=== PATIENT | female | born 1955 | race Caucasian/White ===

== ENCOUNTER → 2016-08-29 | Outpatient (CLI) | payer BC ==
--- NOTE | 2016-08-29 17:22 | CT ---
EXAMINATION TYPE: CT chest w con DATE OF EXAM: 08/29/2016 5:05 PM COMPARISON: 06/02/2016 HISTORY: Follow-up abnormal scan. CT DLP: 552.00 mGycm Automated exposure control for dose reduction was used. CONTRAST: CT scan of the chest is performed with IV Contrast, patient injected with 100 mL of Omnipaque 300. FINDINGS: There is mild linear reticular density in the lower lobes bilaterally. This is consistent with scarri ng and subsegmental atelectasis. There is a 7 mm irregular shaped nodular low density in the anterior right middle lobe. There is no pleural effusion. There are no hilar masses. There is no mediastinal adenopathy. There is no evidence of aortic aneurysm or dissection. There is no pericardial effusion. I see no filling defects in the pulmonary arteries. IMPRESSION: Stable triangular-shaped nodule in the right middle lobe consistent with scarring compar ed to last exam. Mild subsegmental atelectasis and scarring in the lower lobes bilaterally appears st able. No evidence of pulmonary embolism.
== END | disposition home or self-care (01) ==
LOC: RADCTMAIN 16:29
PROVIDERS: ATTEND Internal Medicine Critical Care Medicine
DX: R91.1 Solitary pulmonary nodule (principal); J98.11 Atelectasis; J98.4 Other disorders of lung
CPT/HCPCS: 71260; Q9967

== ENCOUNTER → 2017-04-14 | Outpatient (CLI) | payer BC ==
--- NOTE | 2017-04-15 09:44 | CT ---
EXAMINATION TYPE: CT chest w con DATE OF EXAM: 04/14/2017 COMPARISON: 08/29/2016, 03/21/2016 HISTORY: No complaints at time of scan. Follow up nodule CT DLP: 238.4 mGycm, Automated exposure control for dose reduction was used. CONTRAST: Performed injected with 100 mL of Omnipaque 300. TECHNIQUE: Axial images were obtained at 5 mm thick sections. Reconstructed images are reviewed on [employer] computer in the coronal plane. FINDINGS: Portion of the thyroid visualized is normal. There is some streak opacities within the right middle lobe and within the lingula could represent so me atelectatic changes at the lung bases. Stable appearing 0.6 cm nodules in the anterior right middl e lobe. Series 4 image 38. No enlarged mediastinal or hilar adenopathy is evident. The ascending aorta diameter at the level o f the main pulmonary artery is 3.1 cm. The main pulmonary artery diameter at the bifurcation is 2.[address] sections are obtained through the upper abdomen. Abdomen is essentially unremarkable. IMPRESSIONS: 1. Mild linear opacities at the lung bases likely on the basis of atelectasis. 2. Stable small nodule right middle lobe. Continued monitoring is recommended. This should be confirm ed as stable over the course of 2 years.
== END | disposition home or self-care (01) ==
LOC: RADCTMAIN 19:13
PROVIDERS: ATTEND Internal Medicine Critical Care Medicine
DX: R91.1 Solitary pulmonary nodule (principal); R91.8 Other nonspecific abnormal finding of lung field; Z88.2 Allergy status to sulfonamides; Z88.6 Allergy status to analgesic agent
CPT/HCPCS: 71260; Q9967

== ENCOUNTER → 2017-05-27 | Outpatient (CLI) | payer BC ==
--- NOTE | 2017-05-28 14:01 | MM ---
Reason for exam: screening (asymptomatic). Last mammogram was performed 1 year and 11 months ago. History: Patient is postmenopausal. Physical Findings: A clinical breast exam by your physician is recommended on an annual basis and results should be correlated with mammographic findings. MG 3D Screening Mammo W/Cad Bilateral CC and MLO view(s) were taken. Prior study comparison: July 05, 2015, bilateral MG screening mammo w CAD. June 07, 2014, bilateral MG screening mammo w CAD. There are scattered fibroglandular densities. No suspicious abnormality. No significant changes when compared with prior studies. ASSESSMENT: Negative, BI-RAD 1 RECOMMENDATION: Routine screening mammogram of both breasts in 1 year.
== END | disposition home or self-care (01) ==
LOC: RADMAMWWP 12:40
PROVIDERS: ATTEND Family Medicine
DX: Z12.31 Encounter for screening mammogram for malignant neoplasm of breast (principal)
CPT/HCPCS: 77063; G0202

== ENCOUNTER → 2017-06-25 | Outpatient (CLI) | payer BC ==
--- NOTE | 2017-06-25 14:26 | XR ---
EXAMINATION TYPE: XR chest 2V DATE OF EXAM: 06/25/2017 COMPARISON: 03/11/2016 TECHNIQUE: PA and lateral views submitted. HISTORY: Preop FINDINGS: The lungs are clear and there is no pneumothorax, pleural effusion, or focal pneumonia. Hypertrophi c change of the AC joints. No overt failure. Linear changes involving the lungs are suggestive of sca r or atelectasis IMPRESSION: 1. No acute process.
== END | disposition home or self-care (01) ==
LOC: RADXRMAIN 13:56
PROVIDERS: ATTEND Physician Assistant
DX: Z01.818 Encounter for other preprocedural examination (principal)
CPT/HCPCS: 71046

== ENCOUNTER 2017-06-29 05:45 | Observation (INO) | payer BC ==
--- NOTE | 2017-06-25 16:54 | HP ---
HISTORY AND PHYSICAL DATE OF ADMISSION: 06/29/2017 HISTORY: This is a 62-year-old, 2, para 2 woman with symptomatic pelvic prolapse that started approximately 6 weeks ago. She describes a uncomfortable bulging from the vaginal area and needs to change positions in order to empty her bladder completely. Symptoms are accentuated by standing and exercise. She denies postmenopausal bleeding, incontinence, or blood in the stool or urine. On examination, she is found to have a grade 3 cystocele, grade 2 uterine prolapse and a small rectocele and she is therefore scheduled to undergo total vaginal hysterectomy with anterior colporrhaphy on 06/29/2016. ALLERGIES: BACLOFEN, SULFA, ULTRAM. MEDICATIONS: Amrix 30 mg daily, diltiazem 120 mg daily, fluoxetine 20 mg a day. Meloxicam 7.5 mg daily, [place] 5/325 mg p.r.n., omeprazole 20 mg daily, simvastatin 40 mg daily, and Xarelto 20 mg daily. PAST MEDICAL HISTORY: TIA in 2003, atrial fibrillation, hypothyroidism, hypercholesterolemia, chronic low back pain and anxiety. PAST SURGICAL HISTORY: Appendectomy in 8, tonsillectomy in 1959. 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 She has been menopausal since 2007. No history of abnormal Pap smears or other pelvic pathology. SOCIAL HISTORY: She is . She is a former smoker. Negative for alcohol or drug use. FAMILY HISTORY: Significant for heart disease in her father. REVIEW OF SYSTEMS: Negative except for that described above. PHYSICAL EXAM: Blood pressure 120/66, heart rate 94, weight 158 pounds, height 5 feet 7. In general, this is a pleasant female in no apparent distress. HEENT exam is unremarkable with no palpable lymphadenopathy or thyromegaly. The lungs are clear to auscultation bilaterally and the heart is of regular rate and rhythm. The abdomen is soft and nontender with no rebound, no guarding and no flank pain. On pelvic examination, she has normal atrophic female external genitalia without lesions or irritation. On Valsalva, she does have a third-degree cystocele, second-degree cervical uterine prolapse, and first degree rectocele. On bimanual examination, the uterus is small, freely mobile and in the midline with no palpable adnexal masses. This is confirmed on rectovaginal examination. ASSESSMENT: A 62-year-old 2, para 2 with symptomatic third-degree cystocele and second- degree cervical uterine prolapse. She is scheduled to undergo a total vaginal hysterectomy with anterior colporrhaphy. Alternatives to this procedure have been reviewed and declined by the patient. The risks include, but are not limited to bleeding, transfusion, laparotomy, infection, damage to bowel, bladder, ureters, or other pelvic structures. There is a risk of recurrent prolapse. She has a risk for anesthesia complications, DVT, PE and/or . She has undergone cardiac clearance and will hold her Xarelto prior to the procedure. She is scheduled to undergo the above-named procedure on 06/29/2017. MMODL / IJN: [id number] /
[~2017-06-29 05:45] MED LIST: DEXAMETHASONE SOD PHOSPHATE 10 MG/ML 1 ML VIAL IV ONE; HEPARIN SODIUM,PORCINE 5,000 UNIT/ML 1 ML VIAL SQ ONE; LIDOCAINE 1% 20 ML VIAL (10MG/ML) FOR IV START INTRADERMA PRN; ONDANSETRON 4 MG/2 ML VIAL IVP ONE; SCOPOLAMINE 1.5MG/72HR PATCH TRANSDERM ONE; ceFAZolin IN SWFI 2 GM/20 ML SYRINGE IVP ONE; cefOXitin IN SWFI 2 GM/10 ML SYRINGE IVP ONE
[2017-06-29] MEDS: LACTATED RINGERS 1,000 ML IV SCH (06:45)
[2017-06-29] MEDS ORDERED: MIDAZOLAM 2 MG/2 ML VIAL ONE (07:26)
[2017-06-29] MEDS ORDERED: LIDOCAINE 1% INJ 10MG/ML (20 ML MDV) ONE (07:26)
[2017-06-29] MEDS ORDERED: PROPOFOL 10 MG/ML 20 ML VIAL IV ONE (07:26)
[2017-06-29] MEDS ORDERED: NALOXONE 0.4 MG/ML 1 ML VIAL IV PRN (07:49)
[2017-06-29] MEDS ORDERED: MORPHINE SULFATE 5 MG/ML SYRINGE IVP PRN (07:49)
[2017-06-29] MEDS ORDERED: VASOPRESSIN 20 UNIT/ML 1 ML VIAL SQ ONE (07:59)
[2017-06-29] MEDS ORDERED: VASOPRESSIN 20 UNIT/ML 1 ML VIAL IV ONE (07:59)
[2017-06-29] MEDS ORDERED: BACITRACIN 500 UNIT/GM OINT 28.4 GM TUBE TOPICAL ONE (08:16)
[2017-06-29] MEDS ORDERED: LACTATED RINGERS 1,000 ML IV ONE (08:23)
--- NOTE | 2017-06-29 08:38 | P.OP ---
Date of Procedure: 06/29/17 Preoperative Diagnosis: Third-degree cystocele, second-degree cervical uterine prolapse Postoperative Diagnosis: Same Procedure(s) Performed: Total vaginal hysterectomy and anterior colporrhaphy Anesthesia: spinal Surgeon: Ashlie Gonzáles [employer]scape [employer] Internship #1: Imelda Klein Estimated Blood Loss (ml): 25 IV fluids (ml): 800 Urine output (ml): 100 Pathology: other (Uterus) Condition: stable Disposition: PACU Indications for Procedure: Symptomatic pelvic prolapse Operative Findings: Third-degree cystocele, second to third degree cervical uterine prolapse, first- degree rectocele Description of Procedure: After the patient was met in the preoperative holding area and all of her questions were answered, she was taken to the operating room where anesthetic was administered without incident. She was in positioned, prepped and draped in the dorsal lithotomy position. The bladder was drained for approximately 50 mL of clear urine. Weighted speculum was placed in the vagina and the cervix was grasped anteriorly with a single-tooth tenaculum. Dilute vasopressin solution was infused in the vaginal mucosa circumferentially about the cervix. Vaginal mucosa was then incised circumferentially about the cervix. The anterior posterior vaginal Koza was then bluntly dissected away from the underlying cervical tissue. The posterior peritoneum was identified and was entered sharply. Posterior peritoneum was tagged with a suture and a long weighted speculum was placed. The anterior vaginal Koza was further advanced bluntly. The uterosacral ligaments were clamped, cut and suture ligated bilaterally. 2-0 Vicryl suture was utilized muscle otherwise indicated. Broad ligaments were then further clamped, cut and suture ligated bilaterally. The bladder was advanced anteriorly with good visualization of the bladder. The uterine vasculature was identified, clamped cut and suture ligated bilaterally. The posterior fundus of the uterus was then delivered. The anterior peritoneum was entered sharply in the cornual pedicles were clamped and cut bilaterally. This amputated the specimen. The cornual pedicles were then both doubly suture ligated. Both ovaries were visualized and were high in the pelvis and small. Hemostasis was noted on these pedicles. Long weighted speculum was removed short weighted speculum was replaced. The peritoneum was then closed in a pursestring fashion with 2-0 Vicryl suture. The vaginal cuff was closed by reapproximating the uterosacral ligaments in the midline and incorporating the vaginal mucosa. Additional interrupted 0 Vicryl suture was utilized to further close the cuff posteriorly. Attention was then turned to the anterior pair. The anterior vaginal Koza was grasped and was infused with dilute vasopressin solution. Metzenbaum scissors were utilized to undermine the anterior vaginal mucosa vertically to a level approximately 1.5 cm below the urethral orifice. This was incised. The underlying vesicovaginal tissue was then bluntly from the vaginal mucosa. Lopez catheter was then placed in the bladder and an additional 50 mL of urine, clear was obtained. The vesicovaginal fascia was then reapproximated in the midline using 2-0 Vicryl suture in an interrupted fashion. Approximate 4 sutures were placed to completely reduce the defect. Excess vaginal mucosa was excised and the incision was closed in a running locked fashion with 0 Vicryl suture. Hemostasis was noted. The vagina was packed with bacitracin Kerlix gauze. All counts reported to me as correct by the operating room staff. Patient was opened from anesthetic and transported to the recovery area in stable condition.
[2017-06-29] MEDS: HYDROmorphone 0.5 MG/0.5 ML SYRINGE IVP PRN ×2 (09:33→09:39)
[2017-06-29] MEDS ORDERED: HYDROmorphone 2 MG/ML 1 ML SYRINGE IVP PRN (09:44)
[2017-06-29] MEDS ORDERED: Acetaminophen-Codeine 300-30mg TAB PO PRN (10:16)
[2017-06-29] MEDS ORDERED: IBUPROFEN 600 MG TAB PO PRN (10:16)
[2017-06-29] MEDS ORDERED: SIMETHICONE 80 MG CHEWABLE PO PRN (10:16)
[2017-06-29] MEDS ORDERED: METOCLOPRAMIDE 5 MG/ML 2 ML VIAL IVP PRN (10:16)
[2017-06-29] MEDS ORDERED: MELOXICAM 7.5 MG TAB PO SCH (10:45)
[2017-06-29] MEDS: SENNOSIDES-DOCUSATE SODIUM 1 EACH TAB PO SCH ×2 (10:45→20:25)
[2017-06-29] MEDS: KETOROLAC 30 MG/ML 1 ML VIAL IVP PRN ×3 (10:50→20:25)
[2017-06-29] MEDS: diphenhydrAMINE 50 MG/ML 1 ML VIAL IVP PRN ×2 (13:01→17:17)
--- NOTE | 2017-06-29 13:07 | P.CONS ---
History of Present Illness - Reason for Consult Consult date: 06/29/17 management of atrial fib Requesting physician: Ashlie Gonzáles - Chief Complaint vaginal prolapse urinary incontinence - History of Present Illness Patient is a 62-year-old female with a past medical history of atrial fibrillation, dyslipidemia, and arthritis who presented for elective surgical repair of vaginal prolapse and cystocele. We have been asked to follow patient regarding her chronic atrial fibrillation. Patient seen and examined at bedside. She reports a 6 week history of vaginal prolapse and urinary incontinence. She felt well prior to surgery. She does not have any recent cough, cold, fever, or flu. She has not had any recent shortness of breath, palpitations, or chest pain. She reports that she struggles with constipation and takes MiraLAX daily at home, she would like this restarted. She stopped her mobic and Xarelto last Thursday. Review of Systems Pertinent positives and negatives as per HPI, all other review of systems is negative. Past Medical History Past Medical History: Atrial Fibrillation, CVA/TIA, GERD/Reflux, Hyperlipidemia , Osteoarthritis (OA) Additional Past Medical History / Comment(s): HX OF TIA- no effects, chronic lower back pain. cystocele and uterine prolapse History of Any Multi-Drug Resistant Organisms: None Reported Past Surgical History: Appendectomy, Tonsillectomy Additional Past Surgical History / Comment(s): PAIN CLINIC PROCEDURES,. colonoscopy. Vaginal hysterectomy Past Anesthesia/Blood Transfusion Reactions: No Reported Reaction Past Psychological History: Anxiety, Depression Smoking Status: Former smoker Past Alcohol Use History: None Reported Additional Past Alcohol Use History / Comment(s): quit smoking 1977, smoked for 10 yrs, < 1 PPD Past Drug Use History: None Reported - Past Family History Father Family Medical History: Cancer Additional Family Medical History / Comment(s): heart disease Medications and Allergies Home Medications Medication Instructions Recorded Confirmed Type Diltiazem Cd [Cardizem CD] 120 mg PO HS 01/25/14 06/29/17 History Omeprazole [PriLOSEC] 20 mg PO AC-BID 01/25/14 06/29/17 History Simvastatin [Zocor] 40 mg PO HS 01/25/14 06/29/17 History Cholecalciferol [Vitamin D3] 1,000 unit PO DAILY 12/10/16 06/29/17 History FLUoxetine HCL [PROzac] 20 mg PO 1200 12/10/16 06/29/17 History HYDROcodone/APAP 5-325MG [[place] 1 tab PO QID PRN 12/10/16 06/29/17 History 5-325] Meloxicam [Mobic] 7.5 mg PO BID 12/10/16 06/29/17 History Rivaroxaban [Xarelto] 20 mg PO HS 12/10/16 06/29/17 History Allergies Allergy/AdvReac Type Severity Reaction Status Date / Time baclofen Allergy Rash/Hives Verified 06/29/17 06:13 buprenorphine [From [place]] Allergy Rash/Hives Verified 06/29/17 06:13 Sulfa (Sulfonamide Allergy Rash/Hives Verified 06/29/17 06:13 Antibiotics) Physical Exam Osteopathic Statement: *. No significant issues noted on an osteopathic structural exam other than those noted in the History and Physical/Consult. Vitals: Vital Signs Temp Pulse Pulse Pulse Resp BP BP 06/29/17 11:34 95 16 117/69 06/29/17 11:04 94 16 119/70 06/29/17 10:49 18 L 82 16 114/78 06/29/17 10:34 76 18 114/81 06/29/17 10:19 97.4 F L 72 18 120/72 06/29/17 10:00 97.4 F L 69 16 118/50 06/29/17 09:30 72 16 130/77 06/29/17 09:15 71 16 134/72 06/29/17 09:00 69 16 119/65 06/29/17 08:45 71 16 122/62 06/29/17 08:34 97.4 F L 76 16 135/69 06/29/17 06:21 97.9 F 86 16 137/80 Pulse Ox 06/29/17 11:34 96 06/29/17 11:04 95 06/29/17 10:49 95 06/29/17 10:34 94 L 06/29/17 10:19 06/29/17 10:00 98 06/29/17 09:30 99 06/29/17 09:15 99 06/29/17 09:00 99 06/29/17 08:45 99 06/29/17 08:34 92 L 06/29/17 06:21 93 L Intake and Output 0106/29/17 06/29/17 22:59 06:59 14:59 Intake Total 200 900 Output Total 155 Balance 200 745 Intake: IV 200 900 Output: Urine 130 Estimated Blood Loss 25 Other: Weight 25.1 kg Patient Weight 06/30/17 06:59 Weight 25.1 kg General: non toxic, no distress, appears at stated age, normal weight Derm: no unusual rashes/lesions no unusual ecchymoses, warm, dry Head: atraumatic, normocephalic, symmetric Eyes: EOMI, no lid lag, anicteric sclera, pupils equal round reactive to light ENT: Nose and ears atraumatic, no thrush, no pharyngeal erythema Neck: No thyromegaly, no cervical lymphadenopathy, trachea midline, supple Mouth: no lip lesion, mucus membranes moist Cardiovascular: S1S2 reg, no murmur, positive posterior tibial pulse bilateral, no edema, capillary refill less than 2 seconds Lungs: CTA bilateral, no rhonchi, no rales , no accessory muscle use Abdominal: soft, nontender to palpation, no guarding, no appreciable organomegaly, normal bowel sounds Ext: no gross muscle atrophy, muscle strength 5 out of 5 in all 4 extremities grossly, no contractures, Neuro: CN II-XI grossly intact, light touch intact all 4 extremities, finger to nose within normal limits, Psych: Alert, oriented, appropriate affect Results Comments: Labs reviewed from preop Assessment and Plan Assessment: Atrial fib - rate controlled - continue cardizem - resume xarelto once ok with INFORMATICS APPLICATION ANALYST Vaginal prolapse s/p SYEDA - management as per INFORMATICS APPLICATION ANALYST - will hold mobic as she is receiving toradol and ibuprofen Constipation - Patient requesting to resume her home miralax - also started on senokot by INFORMATICS APPLICATION ANALYST - monitor for BM HLD - statin therapy Thank you for allowing us to participate in the care of this patient. We will continue to follow. Do not hesitate to contact us with questions. Someone can be reached from the [facility] hospitalist group at all hours of the day at [phone].
[2017-06-29] MEDS: FLUoxetine HCL 20 MG CAP PO SCH (15:38)
[2017-06-29] MEDS: Acetaminophen-Codeine 300-30mg TAB PO PRN (17:17)
[2017-06-29] MEDS: PANTOPRAZOLE 40 MG TABLET PO SCH (20:20)
[2017-06-29] MEDS ORDERED: ATORVASTATIN 20 MG TAB PO SCH (21:00)
[2017-06-29] MEDS ORDERED: DILTIAZEM CD 120 MG CAP.ER.24H PO SCH (21:00)
[2017-06-30] MEDS: KETOROLAC 30 MG/ML 1 ML VIAL IVP PRN (03:18)
[2017-06-30 04:59] VITALS: RESP 16
[2017-06-30] MEDS: LACTATED RINGERS 1,000 ML IV SCH (06:16)
[2017-06-30] MEDS: PANTOPRAZOLE 40 MG TABLET PO SCH (07:28)
[2017-06-30] MEDS: Acetaminophen-Codeine 300-30mg TAB PO PRN ×2 (08:10→14:38)
[2017-06-30 08:25] LABS: Basophils % (A) 0 %; Eosinophils % (A) 0 %; HCT 41.4 % (34.0-46.0); HGB 13.6 gm/dL (11.4-16.0); Lymphocytes # (A) 1.2 k/uL (1.0-4.8); Lymphocytes % (A) 9 %; MCH 31.6 pg (25.0-35.0); MCV 95.8 fL (80.0-100.0); Monocytes # (A) 0.7 k/uL (0-1.0); Monocytes % (A) 5 %; Neutrophils # (A) 12.1 k/uL (1.3-7.7); Neutrophils % (A) 85 %; Platelet Count 251 k/uL (150-450); RBC 4.32 m/uL (3.80-5.40); RDW 13.2 % (11.5-15.5); WBC 14.1 k/uL (3.8-10.6)
--- NOTE | 2017-06-30 08:36 | P.DS ---
Providers Date of admission: 06/29/17 20:58 Expected date of discharge: 06/30/17 Attending physician: Ashlie Gonzáles Consults: 06/29/17 10:16 Consult Physician Routine Consulting Provider: Lani Ac Consult Reason/Comments: post op medical aamir Do you want consulting provider notified?: Already Contacted Primary care physician: Stated None - Discharge Diagnosis(es) (1) Cystocele or rectocele with uterine prolapse Current Visit: Yes Status: Acute (2) S/P hysterectomy Current Visit: Yes Status: Acute (3) Atrial fibrillation, controlled Current Visit: Yes Status: Acute Hospital Course: 42-year-old woman who was admitted with symptomatic pelvic prolapse and underwent a total vaginal hysterectomy with anterior colporrhaphy on 2017. Findings at time of surgery were significant for third degree cystocele and second to third degree cervical uterine prolapse. Please see the operative report for details. The patient's postoperative course was unremarkable. She had a medical consultation for history of atrial fibrillation previously on on March. That was appreciated. On post operative day #1 her vaginal packing and Lopez catheter were removed. She had no active bleeding. Her abdominal examination was benign and her vital signs were stable. Postvoid residual trials were initiated. She was tolerating a general diet and her pain was well- controlled with oral pain medications. She was therefore discharged home on postoperative day #1 pending postvoid residuals. Be restarted on her xeralto in 1 week if medical team in agreement. Procedures: Total vaginal hysterectomy with anterior colporrhaphy Patient Condition at Discharge: Good Plan - Discharge Summary Discharge Rx Participant: Yes New Discharge Prescriptions: No Action Diltiazem Cd [Cardizem CD] 120 mg PO HS Simvastatin [Zocor] 40 mg PO HS Omeprazole [PriLOSEC] 20 mg PO AC-BID Rivaroxaban [Xarelto] 20 mg PO HS HYDROcodone/APAP 5-325MG [[place] 5-325] 1 tab PO QID PRN PRN Reason: Pain Meloxicam [Mobic] 7.5 mg PO BID FLUoxetine HCL [PROzac] 20 mg PO 1200 Cholecalciferol [Vitamin D3] 1,000 unit PO DAILY Discharge Medication List Diltiazem Cd [Cardizem CD] 120 mg PO HS 01/25/14 [History] Omeprazole [PriLOSEC] 20 mg PO AC-BID 01/25/14 [History] Simvastatin [Zocor] 40 mg PO HS 01/25/14 [History] Cholecalciferol [Vitamin D3] 1,000 unit PO DAILY 12/10/16 [History] FLUoxetine HCL [PROzac] 20 mg PO 1200 12/10/16 [History] HYDROcodone/APAP 5-325MG [[place] 5-325] 1 tab PO QID PRN 12/10/16 [History] Meloxicam [Mobic] 7.5 mg PO BID 12/10/16 [History] Rivaroxaban [Xarelto] 20 mg PO HS 12/10/16 [History] Follow up Appointment(s)/Referral(s): Ashlie Gonzáles MD [STAFF PHYSICIAN] - 2 Weeks Activity/Diet/Wound Care/Special Instructions: Return to the office in 2 weeks postoperatively or sooner with any concerning signs or symptoms including heavy vaginal bleeding, foul vaginal discharge, severe abdominal or pelvic pain, difficulty with voiding, fever greater than 100.5. Nothing in the vagina 6 weeks. No heavy lifting greater than 10 pounds until seen in the follow-up. Discharge Disposition: HOME SELF-CARE
[2017-06-30] MEDS ORDERED: POLYETHYLENE GLYCOL 3350 17 GM POWD.PACK PO SCH (09:00)
[2017-06-30] MEDS ORDERED: CHOLECALCIFEROL 1,000 UNIT TAB PO SCH (09:00)
[2017-06-30 09:01] LABS: Anion Gap 11 mmol/L; Blood Urea Nitrogen 21 mg/dL (7-17); Calcium 9.6 mg/dL (8.4-10.2); Carbon Dioxide 25 mmol/L (22-30); Chloride 103 mmol/L (98-107); Glucose 118 mg/dL (74-99); Sodium 139 mmol/L (137-145)
--- NOTE | 2017-06-30 09:10 | P.PN ---
Progress Note - Text Anesthesia POD 1. Patient is status post vaginal hysterectomy under spinal anesthesia with intra-thecal preservative free morphine 300 g. Mild pruritus, good post-op analgesia, and no headache or other complication.
[2017-06-30 09:50] VITALS: PULSE 83
[2017-06-30] MEDS: SENNOSIDES-DOCUSATE SODIUM 1 EACH TAB PO SCH (09:50)
--- NOTE | 2017-06-30 11:29 | P.PN ---
Subjective Progress Note Date: 06/30/17 Principal diagnosis: vaginal prolapse Patient is a 62-year-old female with a past medical history of atrial fibrillation, dyslipidemia, and arthritis who presented for elective surgical repair of vaginal prolapse and cystocele. We have been asked to follow patient regarding her chronic atrial fibrillation. Patient s/e at bedside. She denies CP, SOB, and nausea. She is having slightly more pain today as she has been up and moving around. She is urinating, the first time after her espinal was removed there was some dysuria. The second time there was none. She feels as though she is emptying her bladder completely. Objective - Vital Signs Vital signs: Vital Signs Temp 98.0 F 06/30/17 08:00 Pulse 83 06/30/17 08:00 Resp 16 06/30/17 08:00 BP 113/60 06/30/17 08:00 Pulse Ox 97 06/29/17 20:00 Intake & Output 06/29/17 06/30/17 06/30/17 18:59 06:59 18:59 Intake Total 900 Output Total 505 350 200 Balance 395 -350 -200 Weight 25.1 kg Intake: IV 900 Output: Urine 480 350 200 Estimated Blood Loss 25 Other: # Voids 1 - Exam General: non toxic, mild distress due to pain, appears at stated age Derm: warm, dry Head: atraumatic, normocephalic, symmetric Eyes: EOMI, no lid lag, anicteric sclera Mouth: no lip lesion, mucus membranes moist Cardiovascular: S1S2 reg, no murmur, positive posterior tibial pulse bilateral, Lungs: CTA bilateral, no rhonchi, no rales , no accessory muscle use Abdominal: soft, + tender to palpation suprapubic, no guarding, no appreciable organomegaly Ext: no gross muscle atrophy, no edema, no contractures Neuro: CN II-XI grossly intact, no focal neuro deficits Psych: Alert, oriented, appropriate affect - Labs CBC & Chem 7: 06/30/17 07:57 06/30/17 07:57 Labs: Abnormal Lab Results - Last 24 Hours (Table) 06/30/17 06/30/17 Range/Units 07:57 07:57 WBC 14.1 H (3.8-10.6) k/uL Neutrophils # 12.1 H (1.3-7.7) k/uL BUN 21 H (7-17) mg/dL Glucose 118 H (74-99) mg/dL Assessment and Plan Assessment: Atrial fib - rate controlled - continue cardizem - Will resume xarelto on 2017 Vaginal prolapse s/p SYEDA - management as per BARGE CAPTAIN - will hold mobic when on motrin - Instructions added to D/C plan: Do not take both mobic and motrin. Once you are taking less than 2 tablets a day of motrin 600mg you can resume your mobic. Constipation - miralax and senokot HLD - statin therapy Thank you for allowing us to participate in the care of this patient. We will continue to follow. Do not hesitate to contact us with questions. Someone can be reached from the [facility] hospitalist group at all hours of the day at [phone].
[2017-06-30] MEDS: FLUoxetine HCL 20 MG CAP PO SCH (12:43)
[2017-06-30 14:07] VITALS: BP 121/60; TEMP 97.6
== END 2017-06-30 14:45 | disposition home or self-care (01) ==
LOC: OR 05:45 → 4FBP 08:26 → OR 20:58
PROVIDERS: ADMIT Obstetrics & Gynecology; ATTEND Obstetrics & Gynecology
DX: N81.3 Complete uterovaginal prolapse (principal); R32 Unspecified urinary incontinence; E78.5 Hyperlipidemia, unspecified; I48.2 Chronic atrial fibrillation; M19.90 Unspecified osteoarthritis, unspecified site; K59.00 Constipation, unspecified; Z86.73 Personal history of transient ischemic attack (TIA), and cerebral infarction without residual deficits; K21.9 Gastro-esophageal reflux disease without esophagitis; M54.9 Dorsalgia, unspecified; G89.29 Other chronic pain; F41.9 Anxiety disorder, unspecified; F32.9 Major depressive disorder, single episode, unspecified; E03.9 Hypothyroidism, unspecified; E78.00 Pure hypercholesterolemia, unspecified; Z87.891 Personal history of nicotine dependence; Z82.49 Family history of ischemic heart disease and other diseases of the circulatory system; Z79.899 Other long term (current) drug therapy; Z79.01 Long term (current) use of anticoagulants; Z79.1 Long term (current) use of non-steroidal anti-inflammatories (NSAID); Z88.2 Allergy status to sulfonamides; Z88.5 Allergy status to narcotic agent; Z88.8 Allergy status to other drugs, medicaments and biological substances; N80.0 Endometriosis of uterus
CPT/HCPCS: 80048; 81025; 85025; 86850; 86900; 86901; 88307; 88342

== ENCOUNTER → 2018-06-24 | Outpatient (CLI) | payer MEDICARE, BC ==
--- NOTE | 2018-06-24 13:51 | XR ---
EXAM TYPE: LUMBAR SPINE X RAY SERIES COMPARISON: NONE HISTORY: Low back pain TECHNIQUE: 3 views are submitted. FINDINGS: Alignment is anatomic. The pedicles are intact. The transverse processes are intact. There is no s pondylolysis or spondylolisthesis. Multilevel facet arthropathy with marked changes L5-S1. Multileve l degenerative disc disease with severe changes L2-L3. IMPRESSION: 1. Multilevel degenerative disc disease with most marked changes seen at L2-L3. Recommend follow-up M RI. 2. Multilevel facet arthropathy with most marked changes at L5-S1.
== END ==
LOC: RADXRMAIN 13:16
PROVIDERS: ATTEND Family Medicine
DX: M51.36 Other intervertebral disc degeneration, lumbar region (principal); M46.97 Unspecified inflammatory spondylopathy, lumbosacral region
CPT/HCPCS: 72100

== ENCOUNTER → 2018-06-24 | Outpatient (CLI) | payer MEDICARE, BC ==
--- NOTE | 2018-06-25 10:29 | MM ---
Reason for exam: screening (asymptomatic). Last mammogram was performed 1 year and 1 month ago. History: Patient is postmenopausal. Physical Findings: A clinical breast exam by your physician is recommended on an annual basis and results should be correlated with mammographic findings. MG 3D Screening Mammo W/Cad Bilateral CC and MLO view(s) were taken. Prior study comparison: May 27, 2017, bilateral MG 3d screening mammo w/cad. July 05, 2015, bilateral MG screening mammo w CAD. There are scattered fibroglandular densities. There is no discrete abnormality. No significant changes when compared with prior studies. ASSESSMENT: Negative, BI-RAD 1 RECOMMENDATION: Routine screening mammogram of both breasts in 1 year.
== END ==
LOC: RADMAMWWP 12:53
PROVIDERS: ATTEND Physician Assistant
DX: Z12.31 Encounter for screening mammogram for malignant neoplasm of breast (principal)
CPT/HCPCS: 77063; 77067

== ENCOUNTER → 2018-07-01 | Outpatient (CLI) | payer MEDICARE, BC ==
--- NOTE | 2018-07-01 15:50 | BD ---
EXAMINATION TYPE: Axial Bone Density DATE OF EXAM: 07/01/2018 COMPARISON: 09.06.2010 CLINICAL HISTORY: 63 YR OLD FEMALE...ICD-10 CODE: Z13.820 SCREENING FOR OSTEOPOROSIS Height: 66 Weight: 154 FRAX RISK QUESTIONS: Family History (Parent hip fracture): YES History of Fracture in Adulthood: YES RISK FACTORS HISTORY OF: History of Wrist Fracture: LT WRIST, AT 48 YRS OLD Family History of Osteoporosis: YES, HER MOTHER WITH HIP FX Active: YES Postmenopausal woman: YES AT 53 YR OLD MEDICATIONS: Additional Medications: PROZAC, VIT D, REFLUX MEDS, STATIN FOR CHOLESTEROL Additional History: HYPERTENSION EXAM MEASUREMENTS: Bone mineral densitometry was performed using the [email or web address] System. Bone mineral density as measured about the Lumbar spine is: ----- L1-L4(G/cm2): 1.044 T Score Values are as follows: ----- L1: -1.8 ----- L2: -1.4 ----- L3: -0.3 ----- L4: -1.3 ----- L1-L4: -1.1 Bone mineral density has: Decreased -7.1% since study of: 09.06.2010 Bone mineral density about the R hip (g/cm2): 0.859 Bone mineral density about the L hip (g/cm2): 0.798 T Score values are as follows: -----R Neck: -1.5 -----L Neck: -1.7 -----R Total: -1.2 -----L Total: -1.7 Bone mineral density has: Decreased -6.3% since study of: 09.06.2010 FRAX%s: THERE IS A 14.3% CHANCE FOR A MAJOR OSTEOPOROTIC FX AND A 1.4% FOR HIP.....PROBABILITY OF FX IN 10 YRS TIME IMPRESSION: Osteopenia (T Score between -2.5 and -1) is now present low back and both hips. Bone density is decre ased or diminished from prior. There remains slightly increased risk of fracture and the patient may be considered for treatment. Re-Screen 2-5 years. NOTE: T-SCORE=SD OF THE YOUNG ADULT MEAN.
== END | disposition home or self-care (01) ==
LOC: RADBDWWP 12:25
PROVIDERS: ATTEND Family Medicine
DX: Z13.820 Encounter for screening for osteoporosis (principal); M85.88 Other specified disorders of bone density and structure, other site
CPT/HCPCS: 77080

== ENCOUNTER → 2018-07-15 | Outpatient (CLI) | payer MEDICARE, BC ==
--- NOTE | 2018-07-16 15:34 | MR ---
EXAMINATION TYPE: MR thoracic spine wo con DATE OF EXAM: 07/15/2018 COMPARISON: Lumbar spine radiographs dated 06/24/2018 HISTORY: Back pain TECHNIQUE: Multiplanar, multisequence images of the thoracic spine were acquired without intravenous contrast. FINDINGS: The thoracic spine vertebral bodies maintain normal vertebral body height and alignment. Bone marrow signal is within normal limits other than a single T1/T2 hyperintense vertebral body hemangioma. Mult ilevel disc desiccation is seen. The thoracic spinal cord signal is unremarkable. Mildly prominent ep idural fat posteriorly throughout the thoracic spine. No suspicious extra dural fluid collections. Pa raspinal musculature is unremarkable. The main pulmonary artery is enlarged measuring 3.0 cm. Suggests underlying pulmonary arterial hypert ension. Ascending thoracic aorta is within normal limits. There is no evidence of focal disc herniation, spinal canal stenosis, or neural foraminal narrowing a t any thoracic spinal level. No acute fracture, bone marrow edema or compression deformity is seen. IMPRESSION: 1. Multilevel disc desiccation throughout the thoracic spine without focal disc herniation, spinal ca nal stenosis, nor neural foraminal narrowing at any thoracic vertebral level. 2. No evidence of focal bone marrow edema nor compression deformity of the thoracic spine. 3. Enlarged main pulmonary artery suggesting underlying pulmonary tumor hypertension.
== END | disposition home or self-care (01) ==
LOC: RADMRIMAIN 13:08
PROVIDERS: ATTEND Family Medicine
DX: M54.6 Pain in thoracic spine (principal)
CPT/HCPCS: 72146

== ENCOUNTER → 2018-09-25 | Outpatient (CLI) | payer MEDICARE, BC ==
--- NOTE | 2018-09-25 14:09 | NM ---
EXAMINATION TYPE: NM hepatobiliary w EF DATE OF EXAM: 09/25/2018 COMPARISON: NONE INDICATION: Gallbladder disease TECHNIQUE: After the intravenous administration of 4.87 mCi Tc 99m Mebrofenin hepatobiliary scintigra phy is performed. Images were obtained immediately post injection. FINDINGS: There is prompt uptake and excretion of radiotracer by the liver. Extrahepatic ducts are identified at 8 minutes. The gallbladder is visualized within 11 minutes. Small bowel activity is noted within 36 minutes. At one hour 8 ounces of oral ensure plus is given to mimic CCK and gallbladder ejection fraction is c alculated at 39 %, which is in the normal range. (Normal >35% and <80%.). IMPRESSION: 1. Normal hepatobiliary scan
== END | disposition home or self-care (01) ==
LOC: RADNMMAIN 11:50
PROVIDERS: ATTEND Surgery Plastic and Reconstructive Surgery
DX: K82.8 Other specified diseases of gallbladder (principal)
CPT/HCPCS: 78226; A9537

== ENCOUNTER → 2018-09-27 | Day surgery (SDC) | payer MEDICARE, BC ==
[2018-09-22 13:36] VITALS: BMI 23.5
[~2018-09-27] MED LIST changes: -DEXAMETHASONE SOD PHOSPHATE 10 MG/ML 1 ML VIAL IV ONE; -HEPARIN SODIUM,PORCINE 5,000 UNIT/ML 1 ML VIAL SQ ONE; +LACTATED RINGERS 1,000 ML IV ONE; +LACTATED RINGERS 1,000 ML IV SCH; -LIDOCAINE 1% 20 ML VIAL (10MG/ML) FOR IV START INTRADERMA PRN; +LIDOCAINE 1% INJ 10MG/ML (20 ML MDV) ONE; -ONDANSETRON 4 MG/2 ML VIAL IVP ONE; +PROPOFOL 10 MG/ML 20 ML VIAL IV ONE; -SCOPOLAMINE 1.5MG/72HR PATCH TRANSDERM ONE; -ceFAZolin IN SWFI 2 GM/20 ML SYRINGE IVP ONE; -cefOXitin IN SWFI 2 GM/10 ML SYRINGE IVP ONE
--- NOTE | 2018-09-27 07:44 | P.GSHP ---
History of Present Illness H&P Date: 09/27/18 CHIEF COMPLAINT: GERD HISTORY OF PRESENT ILLNESS: The patient is a 63-year-old female who presents reports gastroesophageal reflux disease. Upper endoscopy was offered for further evaluation and management. PAST MEDICAL HISTORY: Please see list. PAST SURGICAL HISTORY: Please see list. MEDICATIONS: Please see list. ALLERGIES: Please see list. SOCIAL HISTORY: No illicit drug use FAMILY HISTORY: No reports of Crohn disease or ulcerative colitis. REVIEW OF ORGAN SYSTEMS: CONSTITUTIONAL: No reports of fevers or chills. GI: Denies any blood in stools or constipation. PHYSICAL EXAM: VITAL SIGNS: Stable GENERAL: Well-developed and pleasant in no acute distress. HEENT: No scleral icterus. Extraocular movements grossly intact. Moist buccal mucosa. NECK: Supple without lymphadenopathy. CHEST: Unlabored respirations. Equal bilateral excursions. CARDIOVASCULAR: Regular rate and rhythm. Distal 2+ pulses. ABDOMEN: Soft, nondistended. MUSCULOSKELETAL: No clubbing, cyanosis, or edema. ASSESSMENT: 1. Gastroesophageal reflux disease PLAN: 1. Recommend proceeding with an upper endoscopy Past Medical History Past Medical History: Atrial Fibrillation, CVA/TIA, GERD/Reflux, Hyperlipidemia, Osteoarthritis (OA) Additional Past Medical History / Comment(s): HX OF TIA- no effects, chronic lower back pain History of Any Multi-Drug Resistant Organisms: None Reported Past Surgical History: Appendectomy, Hysterectomy, Tonsillectomy Additional Past Surgical History / Comment(s): PAIN CLINIC PROCEDURES, Past Anesthesia/Blood Transfusion Reactions: Postoperative Nausea & Vomiting (PONV) Smoking Status: Former smoker - Past Family History Father Family Medical History: Cancer Additional Family Medical History / Comment(s): heart disease Medications and Allergies Home Medications Medication Instructions Recorded Confirmed Type Diltiazem Cd [Cardizem CD] 120 mg PO HS 01/25/14 09/22/18 History Omeprazole [PriLOSEC] 40 mg PO QAM 01/25/14 09/22/18 History Simvastatin [Zocor] 40 mg PO HS 01/25/14 09/22/18 History Cholecalciferol [Vitamin D3] 1,000 unit PO DAILY 12/10/16 09/22/18 History FLUoxetine HCL [PROzac] 20 mg PO 1200 12/10/16 09/22/18 History Meloxicam [Mobic] 7.5 mg PO BID 12/10/16 09/22/18 History Rivaroxaban [Xarelto] 20 mg PO HS #0 06/30/17 09/22/18 Rx HYDROcodone/APAP 7.5-325MG [[place] 1 tab PO Q6HR PRN 09/09/18 09/22/18 History 7.5-325] Ranitidine HCl [Zantac] 150 mg PO BID 09/22/18 09/22/18 History Allergies Allergy/AdvReac Type Severity Reaction Status Date / Time buprenorphine [From Butrans] Allergy Rash/Hives Verified 09/22/18 13:39 Sulfa (Sulfonamide Allergy Rash/Hives Verified 09/22/18 13:39 Antibiotics)
[2018-09-27 12:34] VITALS: PULSE 71; RESP 16
--- NOTE | 2018-09-27 12:35 | P.PCN ---
Date of Procedure: 09/27/18 Description of Procedure: PREOPERATIVE DIAGNOSIS: Gastroesophageal reflux disease. POSTOPERATIVE DIAGNOSIS: Gastritis. Gastroesophageal reflux disease. Diaphragmatic hiatal hernia Gastric polyps, cardia OPERATION: Esophagogastroduodenoscopy with biopsies along antrum. SURGEON: Imelda Lee MD ANESTHESIA: MAC. INDICATIONS: The patient is a 63-year-old female who presents with a history of reflux disease. Benefits and risks of the procedure were described. Informed consent was obtained. DESCRIPTION: The patient was brought into the endoscopy suite and laid in the left lateral decubitus position. An Olympus gastroscope was passed along the posterior oropharynx down to the distal esophagus where the squamocolumnar junction was encountered at 35 cm from the incisors. The stomach was entered and no bile reflux was found. Additional findings are listed below. Biopsies with cold forceps were obtained of the antrum. The first through third portion of the duodenum was examined and unremarkable. Retroflexion of the scope confirmed Hill grade 4 lower esophageal valve. The squamocolumnar junction demonstrated LA grade B erosive esophagitis. The stomach was desufflated. The patient tolerated the procedure well. FINDINGS: Squamocolumnar junction 35 cm from the incisors. Diaphragmatic hiatus at 38 cm. Hiatal hernia, 3 cm Hill grade 4 lower esophageal valve. LA grade B erosive esophagitis. No active duodenitis. Chronic gastritis, superficial RECOMMENDATIONS: Upper endoscopy as needed. Plan - Discharge Summary Discharge Rx Participant: No New Discharge Prescriptions: No Action Diltiazem Cd [Cardizem CD] 120 mg PO HS Simvastatin [Zocor] 40 mg PO HS Omeprazole [PriLOSEC] 40 mg PO QAM Meloxicam [Mobic] 7.5 mg PO BID FLUoxetine HCL [PROzac] 20 mg PO 1200 Cholecalciferol [Vitamin D3] 1,000 unit PO DAILY Rivaroxaban [Xarelto] 20 mg PO HS #0 HYDROcodone/APAP 7.5-325MG [[place] 7.5-325] 1 tab PO Q6HR PRN PRN Reason: Pain Ranitidine HCl [Zantac] 150 mg PO BID Discharge Medication List Diltiazem Cd [Cardizem CD] 120 mg PO HS 01/25/14 [History] Omeprazole [PriLOSEC] 40 mg PO QAM 01/25/14 [History] Simvastatin [Zocor] 40 mg PO HS 01/25/14 [History] Cholecalciferol [Vitamin D3] 1,000 unit PO DAILY 12/10/16 [History] FLUoxetine HCL [PROzac] 20 mg PO 1200 12/10/16 [History] Meloxicam [Mobic] 7.5 mg PO BID 12/10/16 [History] Rivaroxaban [Xarelto] 20 mg PO HS #0 06/30/17 [Rx] HYDROcodone/APAP 7.5-325MG [[place] 7.5-325] 1 tab PO Q6HR PRN 09/09/18 [History] Ranitidine HCl [Zantac] 150 mg PO BID 09/22/18 [History] Follow up Appointment(s)/Referral(s): Imelda Lee MD [STAFF PHYSICIAN] - 10/19/18 Patient Instructions/Handouts: Hiatal Hernia (DC) Discharge Disposition: HOME SELF-CARE
[2018-09-27 12:52] VITALS: BP 134/80
== END | disposition home or self-care (01) ==
LOC: ORWHC2ENDO 08:31
PROVIDERS: ATTEND Surgery Plastic and Reconstructive Surgery
DX: K21.0 Gastro-esophageal reflux disease with esophagitis (principal); K29.50 Unspecified chronic gastritis without bleeding; I48.91 Unspecified atrial fibrillation; Z86.73 Personal history of transient ischemic attack (TIA), and cerebral infarction without residual deficits; E78.5 Hyperlipidemia, unspecified; M19.90 Unspecified osteoarthritis, unspecified site; Z87.891 Personal history of nicotine dependence; Z82.49 Family history of ischemic heart disease and other diseases of the circulatory system; Z79.01 Long term (current) use of anticoagulants; Z79.899 Other long term (current) drug therapy; K31.7 Polyp of stomach and duodenum; K44.9 Diaphragmatic hernia without obstruction or gangrene; Z88.2 Allergy status to sulfonamides; Z88.8 Allergy status to other drugs, medicaments and biological substances; Z79.891 Long term (current) use of opiate analgesic; M54.5 Low back pain; G89.29 Other chronic pain
CPT/HCPCS: 88305; 20552; 62321; 43239; J2250; J1030; J2405; J2001; J3010; J2704; Q9966; 99152

== ENCOUNTER → 2018-09-27 | Day surgery (SDC) | payer MEDICARE, BC ==
[2018-09-22 13:44] VITALS: BMI 23.5
[~2018-09-27] MED LIST changes: +IV FLUID CONTINUATION 1,000 ML IV ONE; +LIDOCAINE 1% 20 ML VIAL (10MG/ML) FOR IV START INTRADERMA ONE; -LIDOCAINE 1% INJ 10MG/ML (20 ML MDV) ONE; -PROPOFOL 10 MG/ML 20 ML VIAL IV ONE
[2018-09-27 08:43] VITALS: RESP 16; TEMP 97.9
--- NOTE | 2018-09-27 09:39 | P.PCN ---
Date of Procedure: 09/27/18 Procedure(s) Performed: PREOPERATIVE DIAGNOSIS: 1- Thoracic Degenerative Disc Diseases 2-myofascial pain syndrome and thoracic areas POSTOPERATIVE DIAGNOSIS: Same as preop diagnosis. PROCEDURE 1. Thoracic epidural steroid injection under fluoroscopic guidance at the T9-10 level. 2. Thoracic epidurogram. 3-trigger point injection thoracic paravertebral muscles 1 on the right side, and 1 on the left side. ANESTHESIA: Local with 1% lidocaine 3 ml and , moderate sedation with intravenous Versed 2 mg ,and fentanyle 100 Mcg EBL: Minimal PROCEDURE INDICATION: The patient with mid back pain and radiculitis symptoms unresponsive to conservative treatment. Fluoroscopy was used to optimize visualization of the needle placement and to maximize safety. PROCEDURE DESCRIPTION / TECHNIQUE: The patient was seen and identified in the preoperative area. Risks, benefits, complications including but not limited to infections ,bleeding ,allergic reaction to the medications ,nerve damage and not complete pain releife , and alternatives were discussed with the patient. The patient agreed to proceed with the procedure and signed the consent. IV was started, and vital signs were stable. Patient was taken to the OR and time out was completed. The patient was placed in the prone position on procedure table and a pillow was placed under the abdomen to reduce lumbar lordosis. The thoracic area was prepped and draped in the usual sterile fashion.ere closely monitored during the procedure. Conscious sedation was used during the procedure to decrease patients anxiety. Vital signs was monitered during the entire procedure. Using anterior-posterior fluoroscopy, the T9-10 interlaminar space was identified and the skin over this site was marked and then infiltrated with 1% lidocaine subcutaneously. Subsequently, a 20-gauge Tuohy epidural needle was inserted and advanced toward the epidural space using the ``Loss of resistance technique and guided by AP and lateral fluoroscopy. The correct needle position in the epidural space was verified with the injection of 2 mL of the water soluble contrast dye Isovue 200 contrast and observing an excellent epidurogram with the epidural spread of the dye, after negative aspiration for blood and CSF and in the absence of paresthesias. Again after negative aspiration, a 5 ml mixture containing 80 mg of Depo-medrol , and 1 ml of preservative free Normal Saline, and 2 ml of preservative free lidocaine 1% solution was injected and a washout of epidurogram was seen. Needle was withdrawn intact, skin was cleansed, and bandages were applied. then the trigger point injections done by using 25-gauge needle, 1 trigger point injected on the right side thoracic paravertebral muscles at T9 levels on the right side, and another trigger point done, on the left side around T7 level on the left side, ropivacaine 0.5% PF ,3 mL injected at each trigger point injection done after negative aspiration, and there was no paresthesia during the injection, patient tolerated the procedure well without any complica tion COMPLICATIONS: None DISPOSITION / PLANS: The patient was placed in a supine position and transferred to the recovery area in a stable condition for observation. There was no evidence of lower extremity motor or sensory deficit after the procedure. Patient was discharged from the recovery room after meeting discharge criteria. Home discharge instructions were given to the patient by the staff. The patient was reexamined prior to discharge. The patient will schedule a follow up in the clinic in 2-4 weeks.
--- NOTE | 2018-09-27 09:43 | FL ---
EXAMINATION TYPE: FL guided pain mgmt statistic DATE OF EXAM: 09/27/2018 HISTORY: Flouroscopy time 12 seconds of fluoroscopy provided. IMPRESSION: 1. Fluoroscopy time.
[2018-09-27 09:51] VITALS: BP 103/57; PULSE 63
== END ==
LOC: ORPAIN 08:30
PROVIDERS: ATTEND Specialist
DX: M51.14 Intervertebral disc disorders with radiculopathy, thoracic region (principal); M79.18 Myalgia, other site; Z88.2 Allergy status to sulfonamides
CPT/HCPCS: 20552; 62321; J2250; J1030; J2405; J3010; Q9966; 99152

== ENCOUNTER 2019-04-11 19:52 | Emergency (ER) | payer MEDICARE, BC ==
[2019-04-11 20:01] VITALS: RESP 18
[2019-04-11] MEDS ORDERED: LIDOCAINE 1% INJ 10MG/ML (20 ML MDV) SQ ONE (21:02)
--- NOTE | 2019-04-11 21:51 | ED ---
Wound/Laceration HPI - General Chief Complaint: Wound/Laceration Stated Complaint: Ankle Injury Time Seen by Provider: 04/11/19 20:55 Source: patient Mode of arrival: ambulatory Limitations: no limitations - History of Present Illness Initial Comments: 63-year-old female presenting for right heel laceration x 2 hours ago. Patient states her door swung and hit her in the posterior left heel. She states it causing laceration. Patient denies any limitations range of motion or weakness of the extremity. Patient states that she felt the laceration may need suture repair presented to urgent care. She was then sent from the urgent care to the emergency chart for her stating that they did not have the correct supplies. Patient denies any falls, inversion injury or any other complaints. States tetanus is UTD. Remaining ROS (-). Patient appears well on arrival bandage in place. - Related Data Home Medications Medication Instructions Recorded Confirmed Diltiazem Cd [Cardizem CD] 120 mg PO HS 01/25/14 04/11/19 Simvastatin [Zocor] 40 mg PO HS 01/25/14 04/11/19 Meloxicam [Mobic] 7.5 mg PO BID 12/10/16 04/11/19 HYDROcodone/APAP 7.5-325MG [[place] 1 tab PO Q6HR PRN 09/09/18 04/11/19 7.5-325] Pantoprazole Sodium [Protonix] 40 mg PO DAILY 04/11/19 04/11/19 Previous Rx's Medication Instructions Recorded Rivaroxaban [Xarelto] 20 mg PO HS #0 06/30/17 Allergies Allergy/AdvReac Type Severity Reaction Status Date / Time buprenorphine [From Butrans] Allergy Rash/Hives Verified 04/11/19 21:08 Sulfa (Sulfonamide Allergy Rash/Hives Verified 04/11/19 21:08 Antibiotics) Review of Systems ROS Statement: Those systems with pertinent positive or pertinent negative responses have been documented in the HPI. ROS Other: All systems not noted in ROS Statement are negative. Past Medical History Past Medical History: Atrial Fibrillation, CVA/TIA, GERD/Reflux, Hyperlipidemia, Osteoarthritis (OA) Additional Past Medical History / Comment(s): HX OF TIA- no effects, chronic lower back pain History of Any Multi-Drug Resistant Organisms: None Reported Past Surgical History: Appendectomy, Hysterectomy, Tonsillectomy Additional Past Surgical History / Comment(s): PAIN CLINIC PROCEDURES, Past Anesthesia/Blood Transfusion Reactions: Postoperative Nausea & Vomiting (PONV) Past Psychological History: Anxiety, Depression Smoking Status: Former smoker Past Alcohol Use History: None Reported Past Drug Use History: None Reported - Past Family History Father Family Medical History: Cancer Additional Family Medical History / Comment(s): heart disease General Exam - General Exam Comments Initial Comments: General: The patient is awake and alert, in no distress, and does not appear acutely ill. Eye: Pupils are equal, round and reactive to light, extra-ocular movements are intact. No nystagmus. There is normal conjunctiva bilaterally. No signs of icterus. Musculoskeletal: Plantar dorsiflexion intact of the lower extremity bilaterally no pain or discomfort. No swelling of the ankle mortise. After she deformity of the posterior left ankle. Approximately 4 cm no exposure of underlying structures. Full strength of the lower extremities including ankles bilaterally. Sensation intact the proximal and distal to injury site +2 dorsalis pedis pulses bilaterally. No other lacerations or abrasions noted. No evidence of tendon injury Neurological: A&O x 3. CN II-XII intact grossly, There are no obvious motor or sensory deficits. Coordination appears grossly intact. Speech is normal. Skin: Skin is warm and dry and no rashes. 4cm laceration of the posterior right heel. No tendon injury. no active bleeding. Linear. No FB. Psychiatric: Cooperative, appropriate mood & affect, normal judgment. Limitations: no limitations Course Vital Signs 04/11/19 04/11/19 19:59 22:11 Temperature 98.1 F 98.0 F Pulse Rate 69 70 Respiratory 18 18 Rate Blood Pressure 119/59 O2 Sat by Pulse 96 94 L Oximetry Procedures - Laceration Laceration #1 Consent Obtained: verbal consent Indication: laceration Site: lower extremity Size (cm): 4 Description: linear Depth: simple, single layer Anesthetic Used: lidocaine 1% Anesthesia Technique: local infiltration Amount (mls): 2 Pre-repair: wound explored, irrigated extensively, deep structures intact Type of Sutures: nylon Size of Sutures: 4-0 Number of Sutures: 10 Technique: simple, interrupted Patient Tolerated Procedure: well, no complications Medical Decision Making - Medical Decision Making 63-year-old presents emergency for evaluation of laceration repair. Laceration repaired after extensive irrigation and cleansing with iodine. Patient tolerate the procedure well. No evidence of tendon injury. Neurovascularly intact. Return parameters discussed patient discharged appearing well Disposition Clinical Impression: Laceration of heel Disposition: HOME SELF-CARE Condition: Good Instructions (If sedation given, give patient instructions): Care For Your S titches (ED), Laceration (ED) Additional Instructions: Please use medication as discussed. Please follow-up with for suture removal in the next 7-10 days. Please follow-up primary care provider in 2 days. Please return to emergency room if the symptoms increase or worsen or for any other concerns. Is patient prescribed a controlled substance at d/c from ED?: No Referrals: Obinna Wolff DO [Primary Care Provider] - 1-2 days Time of Disposition: 21:51
[2019-04-11 22:13] VITALS: BP 119/59; PULSE 70; TEMP 98
== END 2019-04-11 22:17 | disposition home or self-care (01) ==
LOC: EC 19:52
DX: S91.311A Laceration without foreign body, right foot, initial encounter (principal); I48.91 Unspecified atrial fibrillation; K21.9 Gastro-esophageal reflux disease without esophagitis; E78.5 Hyperlipidemia, unspecified; M19.90 Unspecified osteoarthritis, unspecified site; Z87.891 Personal history of nicotine dependence; Z88.2 Allergy status to sulfonamides; Z88.5 Allergy status to narcotic agent; Z88.8 Allergy status to other drugs, medicaments and biological substances; Z79.1 Long term (current) use of non-steroidal anti-inflammatories (NSAID); Z79.899 Other long term (current) drug therapy; W22.8XXA Striking against or struck by other objects, initial encounter
CPT/HCPCS: 99282; 12002; J2001

== ENCOUNTER → 2020-08-01 | Outpatient (CLI) | payer MEDICARE, BC ==
--- NOTE | 2020-08-01 18:54 | BD ---
EXAMINATION TYPE: Axial Bone Density DATE OF EXAM: 08/01/2020 COMPARISON: 07.01.2018 CLINICAL HISTORY: 65 YR OLD FEMALE....ICD-10 CODE: M85.80 DISORDER OF BONE Height: 65.3 Weight: 154 FRAX RISK QUESTIONS: Family History (Parent hip fracture): YES History of Fracture in Adulthood: YES RISK FACTORS HISTORY OF: History of Wrist Fracture: YES, LT WRIST IN HER LATE 50s Family History of Osteoporosis: YES, MOTHER WITH HIP FX Active: YES Postmenopausal woman: YES, AT 53 YRS OLD Hyperparathyroidism: NO Adrenal Insufficiency: NO MEDICATIONS: Additional Medications: BP MEDS, PROZAC, REFLUX MEDS, STATIN FOR CHOLESTEROL, VIT D Additional History: HEART CONDITION, REFLUX, CHOLESTEROL EXAM MEASUREMENTS: Bone mineral densitometry was performed using the [employer] System. Bone mineral density as measured about the Lumbar spine is: ----- L1-L4(G/cm2): 1.042 T Score Values are as follows: ----- L1: -1.8 ----- L2: -0.7 ----- L3: -0.7 ----- L4: -1.5 ----- L1-L4: -1.1 Bone mineral density has: Decreased -0.02% since study of: 07.01.2018 Bone mineral density about the R hip (g/cm2): 0.846 Bone mineral density about the L hip (g/cm2): 0.796 T Score values are as follows: -----R Neck: -1.4 -----L Neck: -1.6 -----R Total: -1.3 -----L Total: -1.7 Bone mineral density has: Decreased -1.0% since study of: 07.01.2018 FRAX%s: THERE IS A 27.2% CHANCE FOR A MAJOR OSTEOPOROTIC FX AND A 3.2% FOR HIP.......PROBABILITY FO R FX IN 10 YRS TIME IMPRESSION: Osteopenia (T Score between -2.5 and -1). There is slightly increased risk of fracture and the patient may be considered for treatment. Re-Screen 2-5 years. NOTE: T-SCORE=SD OF THE YOUNG ADULT MEAN.
--- NOTE | 2020-08-03 11:18 | MM ---
Reason for exam: screening (asymptomatic). Last mammogram was performed 2 years and 1 month ago. History: Patient is postmenopausal. Physical Findings: A clinical breast exam by your physician is recommended on an annual basis and results should be correlated with mammographic findings. MG 3D Screening Mammo W/Cad Bilateral CC and MLO view(s) were taken. Prior study comparison: June 24, 2018, bilateral MG 3d screening mammo w/cad. May 27, 2017, bilateral MG 3d screening mammo w/cad. There are scattered fibroglandular densities. No significant changes when compared with prior studies. ASSESSMENT: Benign, BI-RAD 2 RECOMMENDATION: Routine screening mammogram of both breasts in 1 year.
== END | disposition home or self-care (01) ==
LOC: RADMAMWWP 14:00
PROVIDERS: ATTEND Family Medicine
DX: Z12.31 Encounter for screening mammogram for malignant neoplasm of breast (principal); M85.80 Other specified disorders of bone density and structure, unspecified site
CPT/HCPCS: 77063; 77067; 77080

== ENCOUNTER → 2021-02-07 | Outpatient (CLI) | payer MEDICARE ==
--- NOTE | 2021-02-07 15:27 | US ---
EXAMINATION TYPE: US pelvis complete transvag DATE OF EXAM: 02/07/2021 COMPARISON: NONE CLINICAL HISTORY: 65-year-old female R10.2 PELVIC AND PERINEAL PAIN. LEFT pelvic pain, partial hyster ectomy 2018 TECHNIQUE: Transabdominal sonographic images of the pelvis were acquired. Transvaginal sonographic images were medically necessary to better assess the following anatomy: ovaries Date of LMP: unknown FINDINGS: EXAM MEASUREMENTS: Uterus: Surgically absent Endometrial Stripe: Surgically absent Right Ovary: unable to visualize Left Ovary: unable to visualize 1. Uterus: Surgically absent 2. Endometrium: Surgically absent 3. Right Ovary: Obscured by overlying bowel gas 4. Left Ovary: Obscured by overlying bowel gas 5. Bilateral Adnexa: appears wnl 6. Posterior cul-de-sac: wnl IMPRESSION: Status post hysterectomy. Unable to visualize either ovary at this time. No pelvic free fluid.
== END | disposition home or self-care (01) ==
LOC: RADUSWWP 13:17
PROVIDERS: ATTEND Family Medicine
DX: R10.2 Pelvic and perineal pain (principal); Z90.710 Acquired absence of both cervix and uterus
CPT/HCPCS: 76830; 76856

== ENCOUNTER → 2021-03-15 | Outpatient (CLI) | payer MEDICARE ==
--- NOTE | 2021-03-15 15:03 | CT ---
EXAMINATION TYPE: CT pelvis w con DATE OF EXAM: 03/15/2021 COMPARISON: Pelvic ultrasound February 07, 2021 HISTORY: Generalized pain CT DLP: 394.5 mGycm Automated exposure control for dose reduction was used. CONTRAST: Performed with oral and with IV Contrast, patient injected with 100 mL of Isovue 300. FINDINGS: Oral contrast does not reach colonic level. No suspicious small or large bowel dilatation is seen. No rmal excretion in the distal ureters. Urinary bladder is contrast-filled and not greatly distended. M [id number] concentric wall thickening noted. Nondependent air is present. Correlate clinically. Uterus is surgically absent. No adnexal masses are seen. No free fluid in pelvis. Moderate disc space narrowing and anterior spurring L2-L3 level. IMPRESSION: POOR DISTENTION OF BLADDER WITH MILD TO MODERATE CONCENTRIC WALL THICKENING AND MILD WALL IRREGULARIT IES. CORRELATE CLINICALLY TO EXCLUDE ACUTE CYSTITIS. NONDEPENDENT AIR IS NOTED. CORRELATE CLINICALLY FOR RECENT CATHETERIZATION OTHERWISE OTHER ETIOLOGIES SUCH FISTULA NEED TO BE CONSIDERED.
== END | disposition home or self-care (01) ==
LOC: RADCTMAIN 12:15
PROVIDERS: ATTEND Family Medicine
DX: N32.89 Other specified disorders of bladder (principal)
CPT/HCPCS: 82565; 84520; 72193; 36415; Q9967

== ENCOUNTER 2021-04-03 07:47 | Day surgery (SDC) | payer MEDICARE ==
[2021-03-29 10:25] VITALS: BMI 21.6
--- NOTE | 2021-04-03 08:02 | P.GSHP ---
History of Present Illness H&P Date: 04/03/21 CHIEF COMPLAINT: Colon screen HISTORY OF PRESENT ILLNESS: The patient is a 65-year-old female who presents for colon screen. Lower endoscopy was offered for further evaluation and management. PAST MEDICAL HISTORY: Please see list. PAST SURGICAL HISTORY: Please see list. MEDICATIONS: Please see list. ALLERGIES: Please see list. SOCIAL HISTORY: No illicit drug use FAMILY HISTORY: No reports of Crohn disease or ulcerative colitis. REVIEW OF ORGAN SYSTEMS: CONSTITUTIONAL: No reports of fevers or chills. PHYSICAL EXAM: VITAL SIGNS: Stable GENERAL: Well-developed pleasant in no acute distress. HEENT: No scleral icterus. Extraocular movements grossly intact. Moist buccal mucosa. NECK: Supple without lymphadenopathy. CHEST: Unlabored respirations. Equal bilateral excursions. CARDIOVASCULAR: Regular rate and rhythm. Distal 2+ pulses. ABDOMEN: Soft, nontender, nondistended. MUSCULOSKELETAL: No clubbing, cyanosis, or edema. ASSESSMENT: 1. Colon screen. PLAN: 1. Recommend proceeding with a lower endoscopy Past Medical History Past Medical History: Atrial Fibrillation, CVA/TIA, GERD/Reflux, Hyperlipidemia, Osteoarthritis (OA) Additional Past Medical History / Comment(s): HX OF TIA- no effects, chronic lower back pain. recent lt lower abdominal pain, and utis History of Any Multi-Drug Resistant Organisms: None Reported Past Surgical History: Appendectomy, Hysterectomy, Tonsillectomy Additional Past Surgical History / Comment(s): PAIN CLINIC PROCEDURES, Past Anesthesia/Blood Transfusion Reactions: Postoperative Nausea & Vomiting (PONV) Smoking Status: Former smoker - Past Family History Father Family Medical History: Cancer Additional Family Medical History / Comment(s): heart disease Medications and Allergies Home Medications Medication Instructions Recorded Confirmed Type Diltiazem Cd [Cardizem CD] 120 mg PO HS 01/25/14 03/29/21 History Simvastatin [Zocor] 40 mg PO HS 01/25/14 03/29/21 History Meloxicam [Mobic] 7.5 mg PO BID 12/10/16 03/29/21 History Rivaroxaban [Xarelto] 20 mg PO HS #0 06/30/17 03/29/21 Rx Pantoprazole Sodium [Protonix] 40 mg PO DAILY 04/11/19 03/29/21 History Buprenorphine HCl [Belbuca] 300 mcg BUCCAL BID 03/29/21 03/29/21 History Allergies Allergy/AdvReac Type Severity Reaction Status Date / Time [facility] Allergy Rash/Hives Verified 03/29/21 10:16 Sulfa (Sulfonamide Allergy Rash/Hives Verified 03/29/21 10:16 Antibiotics)
[2021-04-03] MEDS ORDERED: LACTATED RINGERS 1,000 ML IV ONE (08:10)
[2021-04-03 08:25] VITALS: TEMP 97.1
[2021-04-03] MEDS ORDERED: LIDOCAINE 1% (10MG/ML) FOR IV START INTRADERMA PRN (08:31)
[2021-04-03] MEDS ORDERED: LACTATED RINGERS 1,000 ML IV SCH (08:31)
[2021-04-03] MEDS ORDERED: PROPOFOL 10 MG/ML 20 ML VIAL IV ONE (08:55)
[2021-04-03 09:24] VITALS: RESP 16
[2021-04-03 09:35] VITALS: BP 134/68; PULSE 75
--- NOTE | 2021-04-03 10:09 | P.PCN ---
Date of Procedure: 04/03/21 Description of Procedure: PREOPERATIVE DIAGNOSIS: Colonoscopy screening. POSTOPERATIVE DIAGNOSIS: Colonoscopy screening. OPERATION: Colonoscopy to the cecum, ileocecal valve and appendiceal orifice. SURGEON: Imelda Lee MD. ANESTHESIA: MAC. INDICATIONS: The patient is a 65-year-old female who presents for colonoscopy screening. Benefits and risks were described and informed consent was obtained. DESCRIPTION OF PROCEDURE: The patient had undergone Sutab prep. The patient had been brought into the operating room and laid in the left lateral decubitus position. After adequate intravenous sedation, the rectum was examined with 2% lidocaine jelly. External hemorrhoids were encountered. The rectal tone was within normal limits. No lesions were palpated in the rectal vault. An Olympus colonoscope was advanced until the cecum, ileocecal valve and appendiceal orifice were clearly viewed. The prep was excellent. No scattered diverticulosis was encountered. No colonic polyps were found. No evidence of focal colitis was found. Retroflexion of the scope demonstrated grade 2 internal hemorrhoids without active bleeding or inflammation. The colon was desufflated. The patient had tolerated the procedure well. Withdrawal time was over 6 minutes. FINDINGS: Aronchick preparation quality scale 1 (1-5) Internal hemorrhoids, grade 2 External prolapsed hemorrhoids. No arteriovenous malformations. No adenomatous polyps. No focal colitis. RECOMMENDATIONS: Lower endoscopy in 5 years, 2025 Plan - Discharge Summary Discharge Rx Participant: No New Discharge Prescriptions: Continue Diltiazem Cd [Cardizem CD] 120 mg PO HS Simvastatin [Zocor] 40 mg PO HS Meloxicam [Mobic] 7.5 mg PO BID Rivaroxaban [Xarelto] 20 mg PO HS #0 Pantoprazole Sodium [Protonix] 40 mg PO DAILY Buprenorphine HCl [Belbuca] 300 mcg BUCCAL BID Discharge Medication List Diltiazem Cd [Cardizem CD] 120 mg PO HS 01/25/14 [History] Simvastatin [Zocor] 40 mg PO HS 01/25/14 [History] Meloxicam [Mobic] 7.5 mg PO BID 12/10/16 [History] Rivaroxaban [Xarelto] 20 mg PO HS #0 06/30/17 [Rx] Pantoprazole Sodium [Protonix] 40 mg PO DAILY 04/11/19 [History] Buprenorphine HCl [Belbuca] 300 mcg BUCCAL BID 03/29/21 [History] Follow up Appointment(s)/Referral(s): Imelda Lee MD [STAFF PHYSICIAN] - As Needed Patient Instructions/Handouts: Colonoscopy (GEN), *Surgery [facility] - (Anesthesia) Endoscopy Discharge Instructions Activity/Diet/Wound Care/Special Instructions: Repeat colonoscopy 5 years, 2025 Discharge Disposition: HOME SELF-CARE
== END 2021-04-03 10:44 | disposition home or self-care (01) ==
LOC: ORWHC2ENDO 07:47
PROVIDERS: ATTEND Surgery Plastic and Reconstructive Surgery
DX: Z12.11 Encounter for screening for malignant neoplasm of colon (principal); K64.1 Second degree hemorrhoids; K64.8 Other hemorrhoids; I48.91 Unspecified atrial fibrillation; K21.9 Gastro-esophageal reflux disease without esophagitis; E78.5 Hyperlipidemia, unspecified; M19.90 Unspecified osteoarthritis, unspecified site; Z86.73 Personal history of transient ischemic attack (TIA), and cerebral infarction without residual deficits; F41.9 Anxiety disorder, unspecified; F32.9 Major depressive disorder, single episode, unspecified; G89.29 Other chronic pain; M54.50 Low back pain, unspecified; Z87.440 Personal history of urinary (tract) infections; Z90.710 Acquired absence of both cervix and uterus; Z98.890 Other specified postprocedural states; Z87.891 Personal history of nicotine dependence; Z82.49 Family history of ischemic heart disease and other diseases of the circulatory system; Z79.01 Long term (current) use of anticoagulants; Z79.1 Long term (current) use of non-steroidal anti-inflammatories (NSAID); Z79.899 Other long term (current) drug therapy; Z88.2 Allergy status to sulfonamides; Z88.8 Allergy status to other drugs, medicaments and biological substances
CPT/HCPCS: J2704; G0121; 45378

== ENCOUNTER → 2021-09-30 | Outpatient (CLI) | payer MEDICARE ==
--- NOTE | 2021-09-30 13:52 | XR ---
EXAMINATION TYPE: XR knee limited RT DATE OF EXAM: 09/30/2021 COMPARISON: NONE TECHNIQUE: Two views submitted HISTORY: Pain FINDINGS: There is hypertrophic spurring of patella with mild narrowing of patellofemoral joint and medial comp artment of the knee joint. No acute fracture. No dislocation. IMPRESSION: 1. Arthropathy.
== END | disposition home or self-care (01) ==
LOC: RADXRMAIN 13:14
PROVIDERS: ATTEND Family Medicine
DX: M12.861 Other specific arthropathies, not elsewhere classified, right knee (principal)

== ENCOUNTER → 2023-01-02 | Outpatient (CLI) | payer MEDICARE ==
--- NOTE | 2023-01-05 08:12 | MM ---
Reason for Exam: Screening (asymptomatic). Last mammogram was performed 2 year(s) and 5 month(s) ago. Patient History: Menarche at age 11. First Full-Term at age 21. Postmenopausal. Risk Values: Melly 5 year model risk: 1.5%. NCI Lifetime model risk: 4.8%. Prior Study Comparison: 05/27/2017 Bilateral Screening Mammogram, [facility]. 06/24/2018 Bilateral Screening Mammogram, [facility]. 08/01/2020 Bilateral Screening Mammogram, [facility]. Tissue Density: The breast tissue is heterogeneously dense. This may lower the sensitivity of mammography. Findings: Analyzed By CAD. There is no suspicious group of microcalcifications or new suspicious mass in either breast. Overall Assessment: Benign, BI-RAD 2 Management: Screening Mammogram of both breasts in 1 year. . Patient should continue monthly self-breast exams. A clinical breast exam by your physician is recommended on an annual basis. This exam should not preclude additional follow-up of suspicious palpable abnormalities. Note on Melly scores and lifetime risk: 1. A Melly score greater than 3% is considered moderate risk. If this is the case, consider specialist referral to assess eligibility for a risk reducing agent. 2. If overall lifetime risk for the development of breast cancer is 20% or higher, the patient may qualify for future screening with alternating mammogram and breast MRI. Electronically signed and approved by: Bernardino Sosa M.D. Radiologis
== END | disposition home or self-care (01) ==
LOC: RADMAMWWP 13:22
PROVIDERS: ATTEND Family Medicine
DX: Z12.31 Encounter for screening mammogram for malignant neoplasm of breast (principal); Z78.0 Asymptomatic menopausal state
CPT/HCPCS: 77063; 77067

== ENCOUNTER → 2024-06-01 | Outpatient (CLI) | payer MEDICARE ==
--- NOTE | 2024-06-01 19:31 | US ---
EXAMINATION TYPE: US pelvis complete transvag DATE OF EXAM: 06/01/2024 COMPARISON: 12/08/20 CLINICAL INDICATION: Female, 69 years old with history of R10.2 PELV AND PERINEAL PAIN; pelvic pain x months. Partial hysterectomy in 2018 TECHNIQUE: Transvaginal (TV) and Transabdominal (TA) . Transabdominal grayscale sonographic images of the pelvis were acquired. Transvaginal sonographic im ages were medically necessary to better assess the following anatomy: ovaries Doppler imaging: Not performed. FINDINGS: Date of LMP: unknown EXAM MEASUREMENTS: Uterus: Surgically absent Endometrial Stripe: Surgically absent Right Ovary: not seen Left Ovary: not seen 1. Uterus: Surgically absent 2. Endometrium: Surgically absent 3. Right Ovary: not seen 4. Left Ovary: not seen 5. Bilateral Adnexa: peristalsing bowel gas 6. Posterior cul-de-sac: wnl IMPRESSION: 1. Essentially nondiagnostic examination. No obvious ultrasound abnormality. [facility], , 06/01/2024 7:29 PM
== END | disposition home or self-care (01) ==
LOC: RADUSWWP 15:56
PROVIDERS: ATTEND Family Medicine
DX: R10.2 Pelvic and perineal pain (principal)
CPT/HCPCS: 76830; 76856

== ENCOUNTER 2024-09-02 12:37 | Outpatient (CLI) | payer MEDICARE ==
[~2024-09-02 12:37] MED LIST changes: -IV FLUID CONTINUATION 1,000 ML IV ONE; -LACTATED RINGERS 1,000 ML IV ONE; -LACTATED RINGERS 1,000 ML IV SCH; -LIDOCAINE 1% 20 ML VIAL (10MG/ML) FOR IV START INTRADERMA ONE; +SODIUM CHLORIDE 0.9% 250 ML in EMPTY BAG 1 BAG IV PRN
[2024-09-02] MEDS: SODIUM CHLORIDE 0.9% 500 ML 500 ML in EMPTY BAG 1 BAG IV PRN (13:11)
[2024-09-02 13:22] VITALS: BP 112/68; PULSE 70; RESP 16; TEMP 98
[2024-09-02] MEDS: ZOLEDRONIC ACID 5 MG in SODIUM CHLORIDE 0.9% 100 ML IV NR (13:30)
== END 2024-09-05 08:36 | disposition home or self-care (01) ==
LOC: PROCWHC3 12:37
PROVIDERS: ATTEND Family Medicine
DX: M85.80 Other specified disorders of bone density and structure, unspecified site (principal)
CPT/HCPCS: 96365; J3489

== ENCOUNTER → 2025-01-12 | Outpatient (CLI) | payer MEDICARE ==
--- NOTE | 2025-01-12 15:03 | XR ---
EXAMINATION TYPE: XR chest 2V DATE OF EXAM: 01/12/2025 2:56 PM COMPARISON: 06/25/2017 CLINICAL INDICATION: Female, 69 years old with history of R63.4 Abn weight loss, , TECHNIQUE: Frontal and lateral views FINDINGS: The cardiomediastinal silhouette, aorta, and pulmonary vasculature are within normal limits. Mild hyp erinflation. Lungs and pleural spaces are clear. IMPRESSION: COPD. No acute cardiopulmonary process. [facility], Workstation: [facility], 01/12/2025 3:01 PM
--- NOTE | 2025-01-12 15:19 | MM ---
Reason for Exam: Screening (asymptomatic). Last mammogram was performed 2 year(s) and 0 month(s) ago. Patient History: Menarche at age 11. First Full-Term at age 21. Hysterectomy at age 63. Postmenopausal. Risk Values: Melly 5 year model risk: 1.6%. NCI Lifetime model risk: 4.3%. Prior Study Comparison: 06/24/2018 Bilateral Screening Mammogram, [facility]. 08/01/2020 Bilateral Screening Mammogram, [facility]. 01/02/2023 Bilateral MG 3D screening mammo w/cad, [facility]. Tissue Density: There are scattered areas of fibroglandular density. Findings: Analyzed By CAD. Right breast: There is no suspicious group of microcalcifications or new suspicious mass. Left breast: There is no suspicious group of microcalcifications or new suspicious mass. Benign-appearing calcifications left breast. Overall Assessment: Benign, BI-RAD 2 Management: Screening Mammogram of both breasts in [address] [facility] will attempt to contact patient to return for supplemental views and ultrasound if indicated. Patient should continue monthly self-breast exams. A clinical breast exam by your physician is recommended on an annual basis. This exam should not preclude additional follow-up of suspicious palpable abnormalities. Note on Melly scores and lifetime risk: 1. A Melly score greater than 3% is considered moderate risk. If this is the case, consider specialist referral to assess eligibility for a risk reducing agent. 2. If overall lifetime risk for the development of breast cancer is 20% or higher, the patient may qualify for future screening with alternating mammogram and breast MRI. [facility], , 01/12/2025 3:16 PM. Electronically signed and approved by: Anival Aguiar DO
== END | disposition home or self-care (01) ==
LOC: RADMAMWWP 14:24
PROVIDERS: ATTEND Family Medicine
DX: Z12.31 Encounter for screening mammogram for malignant neoplasm of breast (principal); J44.9 Chronic obstructive pulmonary disease, unspecified; R63.4 Abnormal weight loss; R92.323 Mammographic fibroglandular density, bilateral breasts; R92.1 Mammographic calcification found on diagnostic imaging of breast; Z78.0 Asymptomatic menopausal state
CPT/HCPCS: 71046; 77063; 77067